=== PATIENT | male | born 1960 | race Caucasian/White ===

== ENCOUNTER 2021-04-29 16:50 | Emergency (ER) | payer OTHER, SELFPAY ==
--- NOTE | ~2021-04-29 | CT_ITS ---
EXAM: CT HEAD WITHOUT CONTRAST CT CERVICAL SPINE INDICATION: Reason for Exam multiple falls TECHNIQUE: A noncontrast CT scan was performed from the skull base to the vertex. A noncontrast CT scan of the cervical spine was performed from the base of the skull through T1. Coronal and sagittal reformats were obtained at the acquisition workstation. Dose length product is 1182 mGy-cm. COMPARISON: None FINDINGS: Head: No evidence of intracranial hemorrhage or extra-axial fluid collection. No acute territorial infarction. No evidence of mass lesion, mass effect or midline shift. The ventricles are symmetric in configuration and normal in size. The basal cisterns are patent. The calvarium is intact. Limited views of the paranasal sinuses are unremarkable. Mastoid air cells are well aerated and middle ear cavities are clear. Limited views of the orbits are unremarkable. Cervical Spine: Motion artifact minimally limits assessment. Cervical vertebral bodies are normal in height and alignment. Facet joints are anatomically aligned bilaterally. Spinous processes are intact and well aligned. No prevertebral soft tissue swelling. Atlantodens intervals within normal limits. The craniocervical junction is unremarkable. Degenerative disc disease, worst at the C6-C7 level. Uncovertebral spurring is also worse at this level. Small anterior degenerative osteophytes, worst at the C5, C6 and C7 levels. Incidental note is made of incomplete ring of C1 with the left posterior arch partially absent. Biapical paraseptal emphysematous changes of the lungs. No bulky cervical adenopathy. Vascular calcifications. Paravertebral muscles and fat planes are preserved. CT/CT cervical spine wo con IMPRESSION: 1. No evidence of acute intracranial abnormality. 2. Degenerative changes of the cervical spine without acute abnormality.
[2021-04-29 17:02] VITALS: BP 103/76; PULSE 100; RESP 18; TEMP 36.5; O2SAT 93; BMI 24.3
--- NOTE | 2021-04-29 17:14 | ED.ALCOHOL ---
HPI - Alcohol General Chief Complaint: ETOH/Substance Use Stated Complaint: psych eval Time Seen by Provider: 04/29/21 17:11 Source: patient Mode of arrival: ambulatory Limitations: altered mental status (intoxicated) History of Present Illness HPI narrative: 60 y/o male with history of alcoholism and history of a subdural hematoma presents to the ED with multiple falls at home in the setting of drinking heavily. He reports drinking daily since he stopped working in June 2020. His alcohol intake has gone up to compensate for his depression and bordom. He has been falling multiple times per day and reports pain in his knees and hips from falling. He reports being at [facility] several times in the last month and was told he had a subdural hematoma. He denies hitting his head recently but admits to a daily headache. He is not on aspirin or anticoagulation. He lives at home with his ex- who sent him to the ER for evaluation of his falls and for alcohol detox. He reports trying to get in with [facility] in [place] but he has been unable to get in. MD complaint: alcohol intoxication, alcohol dependence and desires rehab Last drink: Hours (ago) Amount of alcohol consumed: reports 8 beers per day Chronic alcohol use: Yes Previous visits for alcohol intoxication: Yes Recent trauma: Yes Associated symptoms: depression Treatments prior to arrival: none Related Data Home Medications Medication Instructions Recorded Confirmed Unobtainable 04/29/21 04/29/21 Allergies Allergy/AdvReac Type Severity Reaction Status Date / Time Unable to Assess Allergy Unverified 04/29/21 17:13 Review of Systems Review of Systems: Constitutional: No Fever, No Chills ENT/Mouth: No sore throat, No Rhinorrhea, No Swallowing Difficulty Eyes: No Eye Pain, No Swelling, No Redness Cardiovascular: No Chest Pain, No SOB, No Orthopnea, No Edema Respiratory: No Cough, No Sputum, No Wheezing, No dyspnea Gastrointestinal: No Nausea, No Vomiting, No Diarrhea, No abdominal Pain, No Hematochezia, No Melena Genitourinary: No Dysuria, No Urinary Frequency, No Hematuria Musculoskeletal: + joint pain, + Myalgias Skin: + Skin Lesions, No rash Neuro: + Weakness, No Numbness, No Dizziness, + Headache Psych: No Anxiety/Panic, + Depression Heme/Lymph: + Bruising, No Lymphadenopathy Endocrine: No Polyuria, No Polydipsia PMFSH Past Medical History Attestation statement: The following information was validated with the patient. Medical History Anxiety Depression ETOH abuse EtOH dependence PTSD (post-traumatic stress disorder) Seizures Social History Social History Advance Directives: No Advance Directives Information Provided: No Physical Exam Vital Signs: Vital Signs: Last Vital Signs Temp 97.7 F 04/29/21 17:02 Pulse 100 04/29/21 17:02 Resp 18 04/29/21 17:02 BP 103/76 04/29/21 17:02 Pulse Ox 93 04/29/21 17:02 Body Mass Index 24.3 Appearance: Alert. Oriented X3. No acute distress. Smells of alcohol Eyes: Pupils equal, round and reactive to light. ENT: Pharynx normal. Poor dentition. Neck: Normal inspection. Neck supple. CVS: Normal heart rate and rhythm. Pulses normal. Respiratory: No respiratory distress. Breath sounds normal. Abdomen: Soft and nontender. +BS x4 Skin: Skin warm and dry. Normal skin color. Normal skin turgor. No rashes. Extremities: 1+ bilateral lower extremity edema at the ankles. Bilateral knee scabbing, right elbow with ecchymosis, nontender, full ROM. Neuro: Oriented X 3. No motor deficit. No sensory deficit. Slurred speech, follows commands. CN II-XII grossly intact. Course Course Course Narrative: 60 yo male presenting for alcohol detox and evaluation of multiple falls. Nonfocal on examination however given recent SDH and reports of ongoing headaches there is a concern for acute on chronic or evolving SDH. Attempting to get records from [facility]. Will get labs, utox, ETOH level and CT head/neck. He has ecchymosis and minor scabbing on all 4 extremities consistent with multiple falls but no large joint tenderness or evidence of any acute fractures. Reevaluation(s) Reevaluation #1: 7:15 pm - ETOH level 405. CBC showing pancytopenia, unknown baseline but this is most likely due to bone marrow suppression and ETOH use. CT scans 1. No evidence of acute intracranial abnormality. 2. Degenerative changes of the cervical spine without acute abnormality. CARE team involved. Reevaluation #2: 7:33 pm - Physician observation started at 7:33. Patient placed in physician observation because patient is awaiting [facility] evaluation for the possible need of inpatient psych admission vs transfer to alcohol detox. At the time observation was started patient's vital signs were stable. Patient is alert and oriented but intoxicated. Neuro exam is non-focal. CV: RRR and lungs are clear. Will continue to monitor. Reevaluation #3: Informed by Nursing patient eloped. Confirmed by Security cameras that patient left the ER and got into a white vehicle. Consultations Consultation #1: CARE Team MDM - Alcohol Lab Data Result diagrams: 04/29/21 18:02 04/29/21 18:02 Labs: Lab Results 04/29/21 04/29/21 04/29/21 Range/Units 18:02 18:02 18:02 WBC 3.5 L (4.8-10.8) X10*3/uL RBC 3.59 L (4.60-5.80) X10*6/uL Hgb 12.9 L (14.0-18.0) g/dl Hct 35.8 L (42-52) % MCV 99.7 H (80-98) fL MCH 35.9 H (27.0-33.0) pg MCHC 36.0 (31.0-36.0) g/dl RDW 12.6 (11.0-16.0) % Plt Count 137 L (160-400) X10*3/uL MPV 9.1 L (9.4-12.4) fL Immature Gran % (Auto) 0.0 (0.0-0.4) % Neut % (Auto) 48.8 (45-73) % Lymph % (Auto) 37.0 (20-40) % [place] % (Auto) 10.5 (2-11) % Eos % (Auto) 2.6 (0-4) % Baso % (Auto) 1.1 (0-2) % Lymph # (Auto) 1.3 (1.2-4.9) X10*3/uL [place] # (Auto) 0.4 (0.1-1.2) X10*3/uL Eos # (Auto) 0.1 (0.0-0.4) X10*3/uL Baso # (Auto) 0.0 (0.0-0.2) X10*3/uL Abs Immat Gran (auto) 0.00 (0.00-0.03) X10*3/uL Absolute Neuts (auto) 1.7 L (2.0-8.3) X10*3/uL Absolute Nucleated RBC 0.000 (0.0-0.012) X10*3/uL Nucleated RBC % (auto) 0.0 (0.0-0.2) /100WBC Sodium 143 (135-145) mmol/L Potassium 3.9 (3.3-5.1) mmol/L Chloride 105 (96-108) mmol/L Carbon Dioxide 27 (22-29) mmol/L Anion Gap 15 (12-20) BUN 5 L (9-16) mg/dL Creatinine 0.66 (0.5-1.4) mg/dL Estim Creat Clear Calc 125.9 Estimated GFR > 60 Random Glucose 91 (60-115) mg/dL Calcium 8.6 (8.4-10.2) mg/dL Magnesium 2.1 (1.6-2.6) mg/dL Total Bilirubin 0.2 (0.0-1.0) mg/dL Direct Bilirubin 0.2 (0.0-0.5) mg/dL AST 42 H (5-37) U/L ALT 30 (0-40) U/L Alkaline Phosphatase 120 H (39-117) U/L Total Protein 7.0 (6.5-8.0) g/dL Albumin 4.1 (3.5-5.0) g/dL Urine Color Urine Appearance Urine pH (5.0-8.0) Ur Specific [place] (1.005-1.025) Urine Protein (NEG-TRACE) MG/DL Urine Glucose (UA) (NEG) MG/DL Urine Ketones (NEG) MG/DL Urine Blood (NEG) Urine Nitrite (NEG) Ur Leukocyte Esterase (NEG) Urine Opiates Screen (Not Detect) Ur Barbiturates Screen (Not Detect) Ur Phencyclidine Scrn (Not Detect) Ur Amphetamines Screen (Not Detect) U Benzodiazepines Scrn (Not Detect) Urine Cocaine Screen (Not Detect) U Marijuana (THC) Screen (Not Detect) Ethyl Alcohol mg/dL COVID-19 (ISELA) Negative (Negative) COVID-19 Clin Com See Note 04/29/21 04/29/21 04/29/21 Range/Units 18:02 18:20 18:20 WBC (4.8-10.8) X10*3/uL RBC (4.60-5.80) X10*6/uL Hgb (14.0-18.0) g/dl Hct (42-52) % MCV (80-98) fL MCH (27.0-33.0) pg MCHC (31.0-36.0) g/dl RDW (11.0-16.0) % Plt Count (160-400) X10*3/uL MPV (9.4-12.4) fL Immature Gran % (Auto) (0.0-0.4) % Neut % (Auto) (45-73) % Lymph % (Auto) (20-40) % [place] % (Auto) (2-11) % Eos % (Auto) (0-4) % Baso % (Auto) (0-2) % Lymph # (Auto) (1.2-4.9) X10*3/uL [place] # (Auto) (0.1-1.2) X10*3/uL Eos # (Auto) (0.0-0.4) X10*3/uL Baso # (Auto) (0.0-0.2) X10*3/uL Abs Immat Gran (auto) (0.00-0.03) X10*3/uL Absolute Neuts (auto) (2.0-8.3) X10*3/uL Absolute Nucleated RBC (0.0-0.012) X10*3/uL Nucleated RBC % (auto) (0.0-0.2) /100WBC Sodium (135-145) mmol/L Potassium (3.3-5.1) mmol/L Chloride (96-108) mmol/L Carbon Dioxide (22-29) mmol/L Anion Gap (12-20) BUN (9-16) mg/dL Creatinine (0.5-1.4) mg/dL Estim Creat Clear Calc Estimated GFR Random Glucose (60-115) mg/dL Calcium (8.4-10.2) mg/dL Magnesium (1.6-2.6) mg/dL Total Bilirubin (0.0-1.0) mg/dL Direct Bilirubin (0.0-0.5) mg/dL AST (5-37) U/L ALT (0-40) U/L Alkaline Phosphatase (39-117) U/L Total Protein (6.5-8.0) g/dL Albumin (3.5-5.0) g/dL Urine Color STRAW Urine Appearance CLEAR Urine pH 6.0 (5.0-8.0) Ur Specific [place] <= 1.005 (1.005-1.025) Urine Protein NEG (NEG-TRACE) MG/DL Urine Glucose (UA) NEG (NEG) MG/DL Urine Ketones NEG (NEG) MG/DL Urine Blood NEG (NEG) Urine Nitrite NEG (NEG) Ur Leukocyte Esterase NEG (NEG) Urine Opiates Screen Not Detected (Not Detect) Ur Barbiturates Screen POSITIVE H (Not Detect) Ur Phencyclidine Scrn Not Detected (Not Detect) Ur Amphetamines Screen Not Detected (Not Detect) U Benzodiazepines Scrn Not Detected (Not Detect) Urine Cocaine Screen Not Detected (Not Detect) U Marijuana (THC) Screen Not Detected (Not Detect) Ethyl Alcohol 407 H* mg/dL COVID-19 (ISELA) (Negative) COVID-19 Clin Com Discharge Plan Discharge Clinical Impression: Alcoholic intoxication Qualifiers: Complication of substance-induced condition: uncomplicated Qualified Code(s): F10.920 - Alcohol use, unspecified with intoxication, uncomplicated Patient Disposition: Elopement Prescriptions: No Action Unobtainable RF: 0 Interventions: ED Discharge Assessment Last Done: 04/29/21 20:17 Discharge Date/Time: 04/29/21 20:17
[2021-04-29 18:09] LABS: MANUAL DIFF FLAG NO
--- NOTE | 2021-04-29 18:10 | MHC.CARE ---
Addendum entered by Urmila Duke EXECUTIVE OFFICER [employer] 04/29/21 18:42: Info update: per Wanda ZENG, recent medical admission at [facility] was for a head injury, and also that pt is requesting to go to [facility] for detox admission. Original Note: CARE team was contacted by Jaida (Software Test Engineer at [facility]) re: pt who was sent to the hospital with his for medical clearance for [facility] a [facility] and mental health treatment. It is anticipated that pt will likely require a medical admission to hospital, as he was admitted at [facility] last week with the intention of discharging from the hospital to [facility] however there was no follow up and discharged home instead. If pt is considered medically stable for transfer to a [place] facility for admission, it was recommended that he be presented to [facility] due to their capacity for managing more complex medical presentations. This television script writer offered to provide update to Jaida, if pt provides consent to do so, as to whether he is admitted to [facility] for medical detox or transferred to [place]. [phone] ext. [phone] (After hours client administrator is Woody at ext. [phone]) Will update ED provider and nurse at this time and will meet with pt once BAL and tox screen results are available.
[2021-04-29 18:18] LABS: Basophils Percent Auto 1.1 % (0-2); Eosinophils Absolute Auto 0.1 X10*3/uL (0.0-0.4); Eosinophils Percent Auto 2.6 % (0-4); Hematocrit 35.8 % (42-52); Hemoglobin 12.9 g/dl (14.0-18.0); Lymphocytes Absolute Auto 1.3 X10*3/uL (1.2-4.9); Mean Corpuscular Hemoglobin 35.9 pg (27.0-33.0); Mean Corpuscular Volume 99.7 fL (80-98); Mean Platelet Volume 9.1 fL (9.4-12.4); Monocytes Absolute Auto 0.4 X10*3/uL (0.1-1.2); Monocytes Percent Auto 10.5 % (2-11); Neutrophils Absolute Auto 1.7 X10*3/uL (2.0-8.3); Neutrophils Percent Auto 48.8 % (45-73); Platelet Count 137 X10*3/uL (160-400); Red Blood Count 3.59 X10*6/uL (4.60-5.80); Red Cell Distribution Width 12.6 % (11.0-16.0); White Blood Count 3.5 X10*3/uL (4.8-10.8)
[2021-04-29 18:29] LABS: Glucose Urine UA NEG (NEG); Leukocyte Esterase Urine NEG (NEG); Nitrite Urine NEG (NEG); Specific Gravity - Urine <= 1.005 (1.005-1.025); Urine Blood NEG (NEG); Urine Ketones NEG (NEG); Urine Protein NEG (NEG-TRACE)
[2021-04-29 18:30] LABS: COVID-19 Test Negative (Negative)
[2021-04-29 18:31] LABS: Appearance Urine CLEAR; Color Urine STRAW
[2021-04-29 18:35] LABS: Ethanol 407 mg/dL
[2021-04-29 18:37] LABS: Alanine Aminotransferase 30 U/L (0-40); Albumin Level 4.1 g/dL (3.5-5.0); Alkaline Phosphatase 120 U/L (39-117); Anion Gap 15 (12-20); Aspartate Amino Transferase 42 U/L (5-37); Bilirubin Direct 0.2 mg/dL (0.0-0.5); Bilirubin Total 0.2 mg/dL (0.0-1.0); Blood Urea Nitrogen 5 mg/dL (9-16); Calcium 8.6 mg/dL (8.4-10.2); Carbon Dioxide 27 mmol/L (22-29); Chloride 105 mmol/L (96-108); Creatinine Clr Calc Pharmacy 125.9; Estimated Glomerular Filt Rate > 60; Glucose Random 91 mg/dL (60-115); Magnesium 2.1 mg/dL (1.6-2.6); Potassium 3.9 mmol/L (3.3-5.1); Sodium 143 mmol/L (135-145)
[2021-04-29 18:58] LABS: Amphetamine Screen Urine Not Detected (Not Detect); Barbiturates, Urine POSITIVE (Not Detect); Benzodiazepines Screen Urine Not Detected (Not Detect); Cannabinoid Screen Urine Not Detected (Not Detect); Cocaine Screen Urine Not Detected (Not Detect); Opiate Screen Urine Not Detected (Not Detect); Phencyclidine Screen Urine Not Detected (Not Detect)
--- NOTE | 2021-04-29 19:57 | PC.NURSE ---
Spoke with patient's (Myrtle). Myrtle reports that the patient has been increasingly depressed and asking for help . Pt denies SI/HI. Speech is slow and occasionally slurred. ETOH level 407. Pt states I called an Uber, but you guys wouldn't let me go, so I guess I'm just stuck here . Aware that he will be evaluated when sober and will remain in ED overnight. Asked and given food/drink. Remains calm/cooperative at this time.
--- NOTE | 2021-04-29 20:19 | PC.NURSE ---
This RN went to bedside to speak to patient. Pt not in bed or nearby bathroom. Spoke with security, confirmed/found to be entering sober vehicle (white sedan) on camera leaving ED with steady gait. Pt left hat behind. Hat placed in belonging bag, labeled, and stored by security. Provider (Wanda ZENG) and cleaner (Shay Arreola) notified.
== END 2021-04-29 20:17 | disposition left against medical advice (07) ==
PROVIDERS: Physician Assistant; Emergency Provider Emergency Medicine
DX: F10.220 Alcohol dependence with intoxication, uncomplicated (principal); Y90.8 Blood alcohol level of 240 mg/100 ml or more; Z91.81 History of falling; F32.9 Major depressive disorder, single episode, unspecified
CPT/HCPCS: 36415; 70450; 72125; 80048; 80076; 80307; 81003; 82077; 83735; 85025; 87635; 99282; 99284